=== PATIENT | female | born 1965 | race Caucasian/White ===

== ENCOUNTER 2021-06-26 03:24 | Observation (INO) | payer MEDICARE, MEDICAID ==
[2021-06-26 03:32] VITALS: BMI 40.1
[2021-06-26] MEDS ORDERED: Nitroglycerin 0.4 MG TAB (25 Tab Bottle) SL PRN (03:55)
[2021-06-26] MEDS ORDERED: Potassium Chloride 20 MEQ TAB PO SCH (04:15)
[2021-06-26] MEDS: Nicotine 21 MG PATCH TD SCH (04:41)
[2021-06-26 05:17] LABS: #Monocytes 0.1 10x3/uL (0.0-1.1); #Neutrophils 3.4 10x3/uL (1.5-8.4); %Basophils 0.4 % (0.0-2.0); %Eosinophils 0.2 % (0.0-6.0); %Lymphocytes 23.5 % (18.0-47.0); %Monocytes 1.7 % (0.0-10.0); %Neutrophils 73.3 % (40.0-75.0); Hemoglobin 11.8 g/dL (12.0-15.5); Mean Corpuscular HGB CONC 32.6 g/dL (32.0-36.0); Mean Corpuscular Hemoglobin 30.5 pg (27.0-33.0); Mean Corpuscular Volume 93.5 fl (81.6-98.3); Mean Platelet Volume 10.9 fl (7.4-10.4); Platelet Count 133 10x3/uL (150-450); RBC Distribution Width 13.5 % (11.5-14.5); Red Blood Cell (RBC) Count 3.87 10x6/uL (3.90-5.03); White Blood Cell (WBC) Count 4.6 10x3/uL (3.5-10.5)
[2021-06-26] MEDS ORDERED: HYDROcodone/Acetaminophen 10/325 mg Tablet PO PRN (05:32)
[2021-06-26 05:38] LABS: Anion Gap 14 mmol/L (10-20); BUN (Urea Nitrogen) 19 mg/dL (9.8-20.1); Calc. Creatinine Clearance 109 mL/min (70-130); Carbon Dioxide 24 mmol/L (22-29); Cardiac Risk 8.4 (Less than 4.5); Chloride 108 mmol/L (98-107); Cholesterol 167 mg/dl (< 200 Desired); Glucose 185 mg/dL (70-105); HDL Cholesterol 20 mg/dL (>60 Neg Risk); LDL Cholesterol, Calculated 93 mg/dL; Magnesium 1.5 mg/dL (1.6-2.6); Potassium 3.9 mmol/L (3.5-5.1); Sodium 142 mmol/L (136-145); Triglycerides 268 mg/dL (Less than 150)
[2021-06-26 05:41] LABS: Troponin I Less than 0.010 ng/mL (< 0.028)
[2021-06-26] MEDS ORDERED: Magnesium 2 GM/50 ML 2 GM in Premix Bag 1 BAG IVPB SCH (08:15)
[2021-06-26 08:39] LABS: Troponin I Less than 0.010 ng/mL (< 0.028)
[2021-06-26] MEDS: tiZANidine HCl 4 MG TAB PO SCH ×3 (08:39→22:37)
[2021-06-26] MEDS: Famotidine 20 MG TAB PO SCH ×2 (08:41→22:37)
[2021-06-26] MEDS: Ascorbic Acid 500 mg Chewable Tablet PO SCH (08:41)
[2021-06-26] MEDS: Aspirin 81 mg Enteric Coated Tablet PO SCH (08:42)
[2021-06-26] MEDS: Aspirin Chewable 81 MG TAB PO SCH (08:42)
[2021-06-26] MEDS: DULoxetine 30 MG CAP PO SCH (08:42)
[2021-06-26] MEDS: Magnesium Oxide 250 MG TAB PO SCH (08:43)
[2021-06-26] MEDS: Fish Oil 1,000 MG CAP PO SCH ×3 (08:43→22:37)
[2021-06-26] MEDS: Metoprolol Tartrate 25 MG TAB PO SCH (08:43)
[2021-06-26] MEDS: Gabapentin 300 MG CAP PO SCH ×3 (08:43→22:37)
[2021-06-26] MEDS: Enoxaparin Sodium 40 MG/0.4 ML SYRINGE SC SCH (08:43)
[2021-06-26] MEDS: Ubidecarenone 50 MG CAP PO SCH (08:44)
[2021-06-26] MEDS ORDERED: metFORMIN 500 MG TAB PO SCH (09:00)
[2021-06-26] MEDS: Calcium Carbonate 600 MG TAB PO SCH ×3 (09:00→22:37)
[2021-06-26] MEDS ORDERED: Acetaminophen 325 MG TAB PO PRN (09:01)
[2021-06-26] MEDS ORDERED: Lidocaine 1% (PF) 30 ML VIAL ONE (13:04)
[2021-06-26] MEDS ORDERED: Adenosine 6 MG/2 ML VIAL ONE (13:05)
[2021-06-26] MEDS ORDERED: Nitroglycerin 50 MG/250 ML BOT 250 ML ONE (13:05)
[2021-06-26] MEDS ORDERED: Heparin 10,000 UNITS/ 10 ML VIAL ONE (13:05)
[2021-06-26] MEDS ORDERED: Sodium Chloride 0.9% 1,000 ML ONE (13:13)
[2021-06-26] MEDS ORDERED: Fentanyl 100 MCG/2 ML VIAL ONE (15:24)
[2021-06-26] MEDS ORDERED: Midazolam HCl 2 mg/2 ml Vial ONE ×2 (15:25→15:54)
[2021-06-26] MEDS ORDERED: Clopidogrel Bisulfate 300 MG TAB ONE (16:53)
[2021-06-26] MEDS ORDERED: Atorvastatin Calcium 40 MG TAB PO SCH (21:00)
[2021-06-27] MEDS: Nicotine 21 MG PATCH TD SCH (05:37)
[2021-06-27] MEDS ORDERED: Clopidogrel Bisulfate 75 MG TAB PO SCH (09:00)
[2021-06-27] MEDS: tiZANidine HCl 4 MG TAB PO SCH ×2 (09:07→16:06)
[2021-06-27] MEDS: Famotidine 20 MG TAB PO SCH (09:07)
[2021-06-27] MEDS: Ubidecarenone 50 MG CAP PO SCH (09:07)
[2021-06-27] MEDS: Magnesium Oxide 250 MG TAB PO SCH (09:07)
[2021-06-27] MEDS: DULoxetine 30 MG CAP PO SCH (09:07)
[2021-06-27] MEDS: Ascorbic Acid 500 mg Chewable Tablet PO SCH (09:07)
[2021-06-27] MEDS: Metoprolol Tartrate 25 MG TAB PO SCH (09:07)
[2021-06-27] MEDS: Fish Oil 1,000 MG CAP PO SCH ×2 (09:07→16:07)
[2021-06-27] MEDS: Gabapentin 300 MG CAP PO SCH ×2 (09:07→16:06)
[2021-06-27] MEDS: Enoxaparin Sodium 40 MG/0.4 ML SYRINGE SC SCH (09:08)
[2021-06-27] MEDS: Aspirin Chewable 81 MG TAB PO SCH ×2 (09:19→09:20)
[2021-06-27] MEDS: Aspirin 81 mg Enteric Coated Tablet PO SCH (09:19)
[2021-06-27] MEDS: Calcium Carbonate 600 MG TAB PO SCH ×2 (09:19→16:06)
[2021-06-27 09:46] LABS: Anion Gap 13 mmol/L (10-20); BUN (Urea Nitrogen) 24 mg/dL (9.8-20.1); Calc. Creatinine Clearance 125 mL/min (70-130); Calcium 8.7 mg/dL (7.8-10.44); Carbon Dioxide 26 mmol/L (22-29); Chloride 108 mmol/L (98-107); Glucose 144 mg/dL (70-105); Magnesium 1.6 mg/dL (1.6-2.6); Potassium 3.7 mmol/L (3.5-5.1); Sodium 143 mmol/L (136-145)
[2021-06-27] MEDS ORDERED: Magnesium 2 GM/50 ML 2 GM in Premix Bag 1 BAG IVPB SCH (11:00)
[2021-06-27] MEDS ORDERED: Potassium Chloride 20 MEQ TAB PO SCH (11:00)
[2021-06-27 16:18] VITALS: BP 147/81; TEMP 98
== END 2021-06-27 19:08 | disposition left against medical advice (07) ==
LOC: CSHTELE 03:24
PROVIDERS: ADMIT Family Medicine; ATTEND Internal Medicine
DX: T82.855A Stenosis of coronary artery stent, initial encounter (principal); R07.9 Chest pain, unspecified; I25.10 Atherosclerotic heart disease of native coronary artery without angina pectoris; I11.0 Hypertensive heart disease with heart failure; I50.32 Chronic diastolic (congestive) heart failure; E78.5 Hyperlipidemia, unspecified; Z95.5 Presence of coronary angioplasty implant and graft; F41.8 Other specified anxiety disorders; Z90.49 Acquired absence of other specified parts of digestive tract; Z90.710 Acquired absence of both cervix and uterus; F17.210 Nicotine dependence, cigarettes, uncomplicated; Z79.84 Long term (current) use of oral hypoglycemic drugs; Z79.82 Long term (current) use of aspirin; E87.6 Hypokalemia; E11.9 Type 2 diabetes mellitus without complications; Z79.02 Long term (current) use of antithrombotics/antiplatelets
CPT/HCPCS: 70450; 80048; 80061; 82962; 83735; 84484 ×2; 85025; 92978; 92979; 93005; 93306; 93458; C1753; C1887 ×2; C9600; 36415; 36416; 92928; 93010; 96372; 96374; 96376; 99152; 99153; G0378; J0153; J1644; J1650; J2001; J2250; J3010; J3475; J7050